=== PATIENT | male | born 1955 | race African-American/Black ===

== ENCOUNTER 2016-09-15 09:48 | Emergency (ER) | payer OTHER ==
[~2016-09-15] VITALS: Ht 167.6 cm; Wt 92.5 kg
[~2016-09-15 09:48] MED LIST: ANUSOL-HC21 GM PR; ARTIFICIAL TEAR15 M1 BOTH EYES; COLACE100 MG PO; DULCOLAX5 MG PO; GLUCOSAMINE CH1 EAC6 PO; ISOSORBIDE DINI20 MG PO; LO-DOSE ASPIRIN81 M2 PO; METOPROLOL TART50 MG PO; NITROGLYCERIN0.4 MG SL; PLAVIX75 MG PO; ROBAXIN500 MG PO; TYLENOL EXTRA500 MG PO; ULTRAM50 MG PO; ZOCOR10 MG PO
[2016-09-15 10:31] LABS: EOSINOPHIL (%) 2.2 % (0-5); EOSINOPHIL COUNT 0.1 K/uL (0-0.3); HEMATOCRIT 43.5 % (38.0-50.0); IMMATURE GRANULOCYTE (%) 0.2 % (0.0-0.7); INSTRUMENT ABS NEUTROPHIL CT 2.8 K/uL; LYMPHOCYTE COUNT 0.8 K/uL (1.0-2.8); MCH 29.7 PG (29.0-34.0); MCHC 32.4 G/DL (30.0-36.0); MCV 91.6 FL (86-99); MONOCYTE (%) 9.7 % (3-12); MONOCYTE COUNT 0.4 K/uL (0-0.8); NEUTROPHIL (%) 67.3 % (45-76); NEUTROPHIL COUNT 2.8 K/uL (1.8-6.4); NRBC (%) 0.5 /100 WBC (0-0); PLATELET COUNT 134 K/uL (156-360); RBC DIS.WIDTH-CV 13.5 % (11.8-14.6); RBC DIS.WIDTH-SD 45.8 % (39-53); RED BLOOD COUNT 4.75 M/uL (4.00-5.50); WHITE BLOOD COUNT 4.1 K/uL (4.1-10.2)
[2016-09-15 10:44] LABS: CHLORIDE 106 mEq/L (99-109); POTASSIUM 3.7 mEq/L (3.7-5.4); SODIUM 135 mEq/L (136-147)
[2016-09-15 10:47] LABS: GLUCOSE 97 mg/dL (70-99)
[2016-09-15 10:48] LABS: ANION GAP 7 MEQ/L (2-14)
[2016-09-15 10:49] LABS: TOTAL BILIRUBIN 0.6 mg/dL (0.0-1.0)
[2016-09-15 10:50] LABS: ALKALINE PHOSPHATASE 64 IU/L (3-129); GFR ESTIMATE (CALCULATED) > 59 mL/min/
[2016-09-15 10:51] LABS: UREA NITROGEN (BUN) 17 mg/dL (9-23)
[2016-09-15 11:01] LABS: ADD MIUA? YES; BILIRUBIN NEGATIVE; BLOOD MODERATE; COLOR YELLOW ((YELLOW)); GLUCOSE (STRIP) NEGATIVE; KETONES NEGATIVE; LEUKOCYTES NEGATIVE; NITRITE NEGATIVE; PROTEIN (STRIP) 100; SPECIFIC GRAVITY 1.017 (1.000-1.030); UROBILINOGEN 0.2 MG/DL (0.2-1.0)
[2016-09-15 11:04] LABS: BACTERIA NONE SEEN /HPF; EPITHELIAL CELLS RARE /HPF; MUCUS TRACE /LPF; UCUL ADDED? NO; WHITE BLOOD CELLS 0-5 /HPF (0-5)
[2016-09-15] MEDS ORDERED: MEDROL DOSEPAK4 MG PO (11:55)
[2016-09-15 12:37] VITALS: BP 151/92
== END 2016-09-15 12:40 ==
LOC: EME 09:48
PROVIDERS: Emergency Medicine
DX: M54.42 Lumbago with sciatica, left side (principal); I10 Essential (primary) hypertension; Z86.718 Personal history of other venous thrombosis and embolism; Z98.61 Coronary angioplasty status; I25.10 Atherosclerotic heart disease of native coronary artery without angina pectoris; D86.9 Sarcoidosis, unspecified
CPT/HCPCS: 72100; 73502; 80053; 81003; 85025; 99281; 99284; J1100; J3010